=== PATIENT | female | born 1990 | race Caucasian/White ===

== ENCOUNTER 2016-09-02 12:29 | Emergency (ER) | payer BC ==
--- NOTE | ~2016-09-02 | CR230 ---
[facility] A Service of [facility] & [facility] RADIOLOGY TEXT RESULTS PATIENT: АНДРЕЙ TRAVIS LOCATION: CFTX : [birth year] UNIT #: [id number] AGE: [address]: KALYANI ALATORRE SEX: F ORDER DR: [id number] [facility] [address] [place], [place] [address] [id number] E MR#: [id number] #: [id number] NAME: АНДРЕЙ TRAVIS : 1990 SEX: F STUDY DATE/TIME: 09/02/2016 12:37 UNIT: [facility] ROOM: STUDY DESCRIPTION: CR Shoulder Min 2 View Rt Attending Physician: Kalyani Alatorre Aprn Ordering Physician: [place] M.D. Primary Care Physician: No Primary Care Physician MEDICAL IMAGING REPORT This report is preliminary unless electronic signature is present EXAM Right shoulder 3 views HISTORY Right shoulder pain after injury at work yesterday. Shoulder strain. FINDINGS AP view with internal and external rotation of the shoulder girdle shows satisfactory relationship of the humeral head and glenoid fossa. The joint space is normal. There is no identifiable fracture or dislocation or bony destructive process about the shoulder girdle anatomy. The acromioclavicular joint is normal. There is no radiopaque foreign body in the region. IMPRESSION Normal shoulder. Dictated by... Alex Andrews M.D. THIS IS AN ELECTRONICALLY VERIFIED REPORT Alex Andrews M.D. at 09/03/2016 1:52 PM DFL/rnr TD: 09/03/2016 04:23 JOB #: [id number] MEDICAL IMAGING REPORT COPY
[~2016-09-02 12:29] MED LIST: DELTASONE20 MG PO; KETOPROFEN PO; VICODIN 5/1 TAB 5/50 PO
== END 2016-09-02 14:27 | disposition home or self-care (01) ==
LOC: CFTX 12:29
DX: S46.911A Strain of unspecified muscle, fascia and tendon at shoulder and upper arm level, right arm, initial encounter (principal); F17.210 Nicotine dependence, cigarettes, uncomplicated; X50.9XXA Other and unspecified overexertion or strenuous movements or postures, initial encounter; Y92.69 Other specified industrial and construction area as the place of occurrence of the external cause; Y99.0 Civilian activity done for income or pay
CPT/HCPCS: 73030; 96372; 99283; J1885

== ENCOUNTER 2016-11-04 23:59 | Emergency (ER) | payer BC | END 2016-11-05 01:39 | disposition home or self-care (01) | LOC: CED 23:59 | DX: S01.01XA Laceration without foreign body of scalp, initial encounter (principal); F17.210 Nicotine dependence, cigarettes, uncomplicated; W22.8XXA Striking against or struck by other objects, initial encounter | CPT/HCPCS: 12001; 99284 ==